=== PATIENT | female | born 1925 | race Caucasian/White ===

== ENCOUNTER → 2016-08-11 | Outpatient (CLI) | payer MEDICARE, BC ==
--- NOTE | 2016-08-11 12:07 | XR ---
EXAMINATION TYPE: XR lumbosacral spine min 4V DATE OF EXAM: 08/11/2016 12:01 PM CLINICAL HISTORY: pain COMPARISON: NONE TECHNIQUE: Frontal, lateral, and oblique images of the lumbar spine are obtained. FINDINGS: There is mild curvature convex to the left. There is severe degenerative disc space narrowi ng at virtually all levels. 8.8 mm anterolisthesis L4 and L5 related to severe facet joint arthropath y. Grade 1 retrolisthesis of T12 on L1 of 3.5 mm. No compression fracture seen. No bony destructive p rocess identified. IMPRESSION: Degenerative changes as discussed.
== END | disposition home or self-care (01) ==
LOC: RADXRMAIN 11:39
PROVIDERS: ATTEND Internal Medicine
DX: M51.36 Other intervertebral disc degeneration, lumbar region (principal)
CPT/HCPCS: 72110

== ENCOUNTER 2016-11-18 13:06 | Emergency (ER) | payer MEDICARE, BC ==
[2016-11-18] MEDS ORDERED: SODIUM CHLORIDE 0.9% 1,000 ML IV STA (13:34)
[2016-11-18] MEDS ORDERED: IPRATROPIUM-ALBUTEROL 3 ML NEB INHALATION STA (13:34)
[2016-11-18] MEDS ORDERED: NITROGLYCERIN SL TABS 0.4 MG TAB SUBLINGUAL STA (13:35)
[2016-11-18 14:32] LABS: Anisocytosis Slight; Basophils % (A) 1 %; CH 26.9; CHCM 33.1; Eosinophils # (A) 0.1 k/uL (0-0.7); Eosinophils % (A) 1 %; HCT 32.8 % (34.0-46.0); HDW 2.74; HGB 10.3 gm/dL (11.4-16.0); Luc # (Auto) 0.06; Luc % (Auto) 1; Lymphocytes # (A) 1.3 k/uL (1.0-4.8); Lymphocytes % (A) 26 %; MCH 25.7 pg (25.0-35.0); MCHC 31.4 g/dL (31.0-37.0); MCV 81.8 fL (80.0-100.0); Mean Platelet Volume 7.7; Monocytes # (A) 0.3 k/uL (0-1.0); Monocytes % (A) 5 %; Neutrophils # (A) 3.3 k/uL (1.3-7.7); Neutrophils % (A) 66 %; RBC 4.01 m/uL (3.80-5.40); RDW 16.5 % (11.5-15.5); WBC (Perox) 5.04
--- NOTE | 2016-11-18 14:32 | XR ---
EXAMINATION TYPE: XR chest 2V DATE OF EXAM: 11/18/2016 COMPARISON: 12/08/2014 HISTORY: Shortness of breath TECHNIQUE: Frontal and lateral views of the chest are obtained. FINDINGS: Scattered senescent parenchymal changes noted. Hyperinflation compatible with COPD. Basilar parenchymal scarring is unchanged. There are nodular densities identified within the left upp er lobe as well as the left mid lung zone. Consider nonemergent CT for further evaluation. Heart size is enlarged without evidence for CHF. Mediastinal structures are stable and grossly unrema rkable. No evidence for hilar prominence. Degenerative changes dorsal spine. IMPRESSION: 1. No evidence for acute pulmonary disease. 2. Areas of suspected nodularity. Nonemergent CT is recommended.
[2016-11-18 14:43] LABS: Creatine Kinase 72 U/L (30-135)
[2016-11-18 14:45] LABS: Calcium 9.4 mg/dL (8.4-10.2); Magnesium 1.9 mg/dL (1.6-2.3); Potassium 4.2 mmol/L (3.5-5.1); Total Bilirubin 0.5 mg/dL (0.2-1.3); Total Protein 7.4 g/dL (6.3-8.2)
--- NOTE | 2016-11-18 14:51 | ED ---
SOB HPI - General Chief Complaint: Shortness of Breath Stated Complaint: L arm pain Time Seen by Provider: 11/18/16 13:19 Source: patient, RN notes reviewed Mode of arrival: wheelchair Limitations: no limitations - History of Present Illness Initial Comments: This 89-year-old female who presents with complaints of shortness of breath and left arm pain for last couple days. She denies any fevers chills cough or other symptoms she is hard of hearing. MD Complaint: shortness of breath - Related Data Home Medications Medication Instructions Recorded Confirmed Amiodarone [Cordarone] 200 mg PO DAILY 09/21/13 11/18/16 Ipratropium/Albuterol Sulfate 1 dose INHALATION RT-QID 09/21/13 11/18/16 [Duoneb 0.5 mg-3 mg/3 ml Soln] Lovastatin [Mevacor] 10 mg PO HS 09/21/13 11/18/16 Sodium Chloride 5% Ophth Soln 1 drop BOTH EYES 5XD 09/21/13 11/18/16 [Wendy 128] Travoprost (Benzalkonium) 1 drop BOTH EYES HS 09/21/13 11/18/16 [Travoprost 0.004% Eye Drop] Pantoprazole Sodium [Protonix] 40 mg PO DAILY 10/22/13 11/18/16 Apixaban [Eliquis] 2.5 mg PO BID 11/11/14 11/18/16 Ergocalciferol [Vitamin D2] 50,000 unit PO SA 11/11/14 11/18/16 Furosemide [Lasix] 20 mg PO BID 11/11/14 11/18/16 HYDROcodone/APAP 5-325MG [[place] 5] 1 tab PO Q8HR PRN 11/11/14 11/18/16 Losartan Potassium [Cozaar] 50 mg PO HS 11/11/14 11/18/16 Budesonide-Formot 160-4.5 Mcg 2 puff INHALATION RT-BID 11/18/16 11/18/16 [Symbicort 160-4.5 Mcg Inhaler] amLODIPine [Norvasc] 5 mg PO DAILY 11/18/16 11/18/16 Allergies Allergy/AdvReac Type Severity Reaction Status Date / Time meperidine HCl [From Demerol] AdvReac Unknown Verified 11/18/16 13:32 Review of Systems ROS Statement: Those systems with pertinent positive or pertinent negative responses have been documented in the HPI. ROS Other: All systems not noted in ROS Statement are negative. Past Medical History Past Medical History: Atrial Fibrillation, COPD, CVA/TIA, Diabetes Mellitus, GI Bleed, Hyperlipidemia, Hypertension, Pneumonia Additional Past Medical History / Comment(s): bronchitis,emphysema, pulmonary hypertension, cellulitis (abd post choly)? colitis/c-diff , glaucoma History of Any Multi-Drug Resistant Organisms: C-DIFF Date of last positivie culture/infection: 07-23-2013 MDRO Source:: stool Past Surgical History: Appendectomy, Section, Cholecystectomy, Heart Catheterization, Hysterectomy, Tonsillectomy Additional Past Surgical History / Comment(s): finger on lt hand removed, rt carotid endarterectomy, jessica cataracts Past Anesthesia/Blood Transfusion Reactions: No Reported Reaction Past Psychological History: No Psychological Hx Reported Smoking Status: Former smoker Past Alcohol Use History: None Reported Past Drug Use History: None Reported - Past Family History Sister(s) Family Medical History: Cancer General Exam - General Exam Comments Initial Comments: This is a well-developed asthenic appearing female she is awake alert oriented 3 Limitations: no limitations General appearance: alert, in no apparent distress Head exam: Present: atraumatic, normocephalic, normal inspection Eye exam: Present: normal appearance, PERRL, EOMI. Absent: scleral icterus, conjunctival injection, periorbital swelling ENT exam: Present: mucous membranes dry Neck exam: Present: normal inspection. Absent: tenderness, meningismus, lymphadenopathy Respiratory exam: Present: wheezes, decreased breath sounds. Absent: respiratory distress, rales, rhonchi, stridor Cardiovascular Exam: Present: regular rate, normal rhythm, normal heart sounds. Absent: systolic murmur, diastolic murmur, rubs, gallop, clicks GI/Abdominal exam: Present: soft, normal bowel sounds. Absent: distended, tenderness, guarding, rebound, rigid Extremities exam: Present: normal inspection, full ROM, normal capillary refill. Absent: tenderness, pedal edema, joint swelling, calf tenderness Back exam: Present: normal inspection Neurological exam: Present: alert, oriented X3, CN II-XII intact Psychiatric exam: Present: normal affect, normal mood Skin exam: Present: warm, dry, intact, normal color. Absent: rash Course Vital Signs 11/18/16 11/18/16 11/18/16 13:09 13:56 14:01 Temperature 98.0 F Pulse Rate 63 56 L 61 Respiratory 18 18 Rate Blood Pressure 174/77 154/68 O2 Sat by Pulse 95 96 Oximetry 11/18/16 11/18/16 11/18/16 14:07 14:15 14:36 Temperature Pulse Rate 64 58 L 56 L Respiratory 18 18 Rate Blood Pressure 104/46 177/58 O2 Sat by Pulse 98 100 Oximetry 11/18/16 15:00 Temperature Pulse Rate 58 L Respiratory 16 Rate Blood Pressure 155/63 O2 Sat by Pulse 99 Oximetry Medical Decision Making - Medical Decision Making I did discuss [employer] the patient she is no longer short of breath or arm does not hurt anymore. The presentation is consistent with bronchospasm and musculoskeletal arm pain - Lab Data Result diagrams: 11/18/16 13:55 11/18/16 13:55 Lab Results 11/18/16 11/18/16 11/18/16 Range/Units 13:55 13:55 13:55 WBC 5.0 (3.8-10.6) k/uL RBC 4.01 (3.80-5.40) m/uL Hgb 10.3 L (11.4-16.0) gm/dL Hct 32.8 L (34.0-46.0) % MCV 81.8 (80.0-100.0) fL MCH 25.7 (25.0-35.0) pg MCHC 31.4 (31.0-37.0) g/dL RDW 16.5 H (11.5-15.5) % Plt Count 228 (150-450) k/uL Neutrophils % 66 % Lymphocytes % 26 % Monocytes % 5 % Eosinophils % 1 % Basophils % 1 % Neutrophils # 3.3 (1.3-7.7) k/uL Lymphocytes # 1.3 (1.0-4.8) k/uL Monocytes # 0.3 (0-1.0) k/uL Eosinophils # 0.1 (0-0.7) k/uL Basophils # 0.0 (0-0.2) k/uL Anisocytosis Slight PT (9.0-12.0) sec INR (<1.2) APTT (22.0-30.0) sec D-Dimer (<0.60) mg/L FEU Sodium 130 L (137-145) mmol/L Potassium 4.2 (3.5-5.1) mmol/L Chloride 97 L (98-107) mmol/L Carbon Dioxide 24 (22-30) mmol/L Anion Gap 9 mmol/L BUN 20 H (7-17) mg/dL Creatinine 1.33 H (0.52-1.04) mg/dL Est GFR (MDRD) Af Amer 46 (>60 ml/min/1.73 sqM) Est GFR (MDRD) Non-Af 38 (>60 ml/min/1.73 sqM) Glucose 102 H (74-99) mg/dL Calcium 9.4 (8.4-10.2) mg/dL Magnesium 1.9 (1.6-2.3) mg/dL Total Bilirubin 0.5 (0.2-1.3) mg/dL AST 23 (14-36) U/L ALT 30 (9-52) U/L Alkaline Phosphatase 82 (38-126) U/L Total Creatine Kinase 72 (30-135) U/L CK-MB (CK-2) 2.4 (0.0-2.4) ng/mL CK-MB (CK-2) Rel Index 3.3 Troponin I <0.012 (0.000-0.034) ng/mL NT-Pro-B Natriuret Pep pg/mL Total Protein 7.4 (6.3-8.2) g/dL Albumin 4.1 (3.5-5.0) g/dL 11/18/16 11/18/16 Range/Units 13:55 13:55 WBC (3.8-10.6) k/uL RBC (3.80-5.40) m/uL Hgb (11.4-16.0) gm/dL Hct (34.0-46.0) % MCV (80.0-100.0) fL MCH (25.0-35.0) pg MCHC (31.0-37.0) g/dL RDW (11.5-15.5) % Plt Count (150-450) k/uL Neutrophils % % Lymphocytes % % Monocytes % % Eosinophils % % Basophils % % Neutrophils # (1.3-7.7) k/uL Lymphocytes # (1.0-4.8) k/uL Monocytes # (0-1.0) k/uL Eosinophils # (0-0.7) k/uL Basophils # (0-0.2) k/uL Anisocytosis PT 10.5 (9.0-12.0) sec INR 1.0 (<1.2) APTT 23.2 (22.0-30.0) sec D-Dimer 0.31 (<0.60) mg/L FEU Sodium (137-145) mmol/L Potassium (3.5-5.1) mmol/L Chloride (98-107) mmol/L Carbon Dioxide (22-30) mmol/L Anion Gap mmol/L BUN (7-17) mg/dL Creatinine (0.52-1.04) mg/dL Est GFR (MDRD) Af Amer (>60 ml/min/1.73 sqM) Est GFR (MDRD) Non-Af (>60 ml/min/1.73 sqM) Glucose (74-99) mg/dL Calcium (8.4-10.2) mg/dL Magnesium (1.6-2.3) mg/dL Total Bilirubin (0.2-1.3) mg/dL AST (14-36) U/L ALT (9-52) U/L Alkaline Phosphatase (38-126) U/L Total Creatine Kinase (30-135) U/L CK-MB (CK-2) (0.0-2.4) ng/mL CK-MB (CK-2) Rel Index Troponin I (0.000-0.034) ng/mL NT-Pro-B Natriuret Pep 884 pg/mL Total Protein (6.3-8.2) g/dL Albumin (3.5-5.0) g/dL - EKG Data -: EKG Interpreted by Sc EKG shows normal: sinus rhythm (Sinus rhythm rate 64. Interval 92 QRS 100 QT since QTC of 440/[address]-T wave configuration) - Radiology Data Radiology results: report reviewed (Imaging shows no definite acute findings or some question of nodularity. The patient's arm pain is resolved she did have pain is reproducible with flexion of her left elbow. No deficits. Patient be discharged to follow-up with her doctor.), image reviewed Disposition Clinical Impression: Musculoskeletal pain of left upper extremity, Bronchospasm Disposition: HOME SELF-CARE Condition: Good Instructions: Bronchospasm (ED), Arm Pain (ED) Referrals: Alfred Garcia MD [Primary Care Provider] - 1-2 days
[2016-11-18 14:55] LABS: Creatine Kinase MB 2.4 ng/mL (0.0-2.4); Troponin I <0.012 ng/mL (0.000-0.034)
[2016-11-18 15:04] LABS: Partial Thromboplastin Time 23.2 sec (22.0-30.0); Prothrombin Time 10.5 sec (9.0-12.0)
[2016-11-18 16:25] VITALS: BP 120/70; PULSE 60; RESP 18; TEMP 97.5
== END 2016-11-18 16:35 | disposition home or self-care (01) ==
LOC: EC 13:06
DX: J98.01 Acute bronchospasm (principal); M79.602 Pain in left arm; I48.91 Unspecified atrial fibrillation; I10 Essential (primary) hypertension; J43.9 Emphysema, unspecified; E78.5 Hyperlipidemia, unspecified; Z87.891 Personal history of nicotine dependence; Z79.01 Long term (current) use of anticoagulants; Z79.51 Long term (current) use of inhaled steroids; Z79.899 Other long term (current) drug therapy
CPT/HCPCS: 36415; 71020; 80053; 82550; 82553; 83735; 83880; 84484; 85025; 85379; 85610; 85730; 93005; 94640; 96360; 96361; 99285

== ENCOUNTER → 2017-01-16 | Outpatient (CLI) | payer MEDICARE, BC ==
--- NOTE | 2017-01-16 16:45 | CT ---
EXAMINATION TYPE: CT chest wo con DATE OF EXAM: 01/16/2017 COMPARISON: NONE HISTORY: 89-year-old female Lung nodules. TECHNIQUE: Contiguous axial scanning of the chest without IV contrast. Coronal and sagittal reconstru ctions performed. CT DLP: 280.80 mGycm Automated exposure control for dose reduction was used. FINDINGS: 1 cm hypodense nodule inferior right lobe of the thyroid gland. The heart is mildly enlarged without pericardial effusion. Coronary vessel calcifications are present and are remarkable for coronary artery disease. Ascending aorta is ectatic at 3.5 cm. Mild atherosclerotic arch calcifications. Conventional vessel b ranching anatomy with tortuous great vessels. Scattered nonenlarged mediastinal lymph nodes are present measuring up to 6 mm. No thoracic lymphaden opathy by CT size criteria. There is a contrast column within the esophagus extending up to the upper third thoracic level. Chronic appearing subpleural interstitial densities and subpleural groundglass particularly in the mi d to lower lungs. Subpleural microcystic changes present at the lung bases with traction bronchiectas is. There is focal annular narrowing and soft tissue thickening at the distal esophagus approximately 3 t o 4 cm above the GE junction, reference axial image 38 and sagittal images 54 and 55. The abdomen were reported separately. Bones: Degenerative disc disease throughout the thoracic spine with grade 1 retrolisthesis at T12-L1. Fatty matrix hemangioma within T6 vertebral body. Grade 1 anterolisthesis at T3-T4. No osseous destr uctive process seen. Degenerative changes at the right shoulder. IMPRESSION: 1. NO SUSPICIOUS PULMONARY NODULE IDENTIFIED. 2. HOWEVER, THERE ARE FINDINGS WITHIN THE LUNGS CHARACTERIZED BY SUBPLEURAL INTERSTITIAL FIBROSIS, GR OUNDGLASS, MICROCYSTIC CHANGE, AND BIBASILAR TRACTION BRONCHIECTASIS WITH A LOWER LUNG PREDOMINANCE. CONSIDER FIBROTIC NSIP OR EARLY UIP. 2. CONTRAST COLUMN EXTENDING UP TO THE UPPER THIRD ESOPHAGEAL LEVEL. CORRELATE FOR GASTROESOPHAGEAL R EFLUX DISEASE. 3. ANNULAR NARROWING AND SOFT TISSUE THICKENING OF THE DISTAL ESOPHAGUS LOCATED 3 TO 4 CM ABOVE THE G E JUNCTION. RECOMMEND DIRECT VISUALIZATION TO EXCLUDE ESOPHAGEAL CANCER. 4. ABDOMEN WILL BE REPORTED SEPARATELY.
--- NOTE | 2017-01-16 17:31 | CT ---
EXAMINATION TYPE: CT abdomen pelvis w con DATE OF EXAM: 01/16/2017 COMPARISON: 03/12/2020 HISTORY: 89-year-old female with Constipation. TECHNIQUE: Contiguous axial scanning of the abdomen and pelvis following administration of 100 ml Omn ipaque 300 IV contrast. Delayed images through the kidneys and coronal/sagittal reconstructions perf ormed. CT DLP: 551.80 mGycm Automated exposure control for dose reduction was used. FINDINGS: The chest is reported separately including findings along the distal esophagus. The central left hepatic lobe cyst now measures 1.3 cm enlarged from 2009. No focal liver lesion. Por kay venous system appears patent. No biliary ductal dilatation. Cholecystectomy clips are present. Adrenal glands, left kidney, spleen, pancreas appear within normal limits. Small anterior splenule. Moderate atherosclerotic calcifications throughout the abdominal aorta and iliac arteries without isc hemic changes extending into both celiac axis and SMA with mild to moderate segmental areas of stenos is in the proximal aspect of these vessels. The right kidney remains atrophic with some vascular calcifications. No dilated small bowel, free fluid, or free air. No mesenteric or retroperitoneal lymphadenopathy. Oral contrast has progressed to the distal third transverse colon. There is moderate stool burden sca ttered mild sigmoid diverticulosis. Some pericolonic cysts fat stranding along the descending colon s uspected to represent prominent pericolonic vessels rather than inflammation. Bladder is urine distended. Uterus and ovaries are visualized. A calcification in the right ovary ciro sures 1.1 cm and is slightly larger from 03/12/2010. This is nonspecific and a benign etiology is favo red. Surgical changes along the anterior midline infraumbilical abdominal wall. Small fatty umbilical her iveth. No abnormal fluid collection in the pelvis or pelvic lymphadenopathy seen. Bones: Mild degenerative changes at the hips. Hypertrophic facet arthropathy throughout with grade 2 anterolisthesis at L4-L5 and grade 1 retrolisthesis at T12-L1. There is spinal canal stenosis at L4-L 5. No osseous destructive process seen. IMPRESSION: 1. CHEST AND DISTAL ESOPHAGEAL FINDINGS ARE DISCUSSED IN SEPARATE REPORT OF THE SAME DAY. 2. MODERATE STOOL BURDEN. THERE IS OCCASIONAL SIGMOID DIVERTICULOSIS. SOME PERICOLONIC FAT STRANDING ALONG THE DESCENDING COLON SUSPECTED TO REPRESENT PROMINENT VESSELS RATHER THAN MILD INFLAMMATION. CL INICALLY CORRELATE. 3. ADVANCED MULTILEVEL DEGENERATIVE CHANGES IN THE LUMBAR SPINE WITH GRADE 2 ANTEROLISTHESIS AT L4-L5 AND SPINAL CANAL STENOSIS.
== END | disposition home or self-care (01) ==
LOC: RADCTMAIN 15:07
PROVIDERS: ATTEND Internal Medicine Critical Care Medicine
DX: J47.9 Bronchiectasis, uncomplicated (principal); J84.10 Pulmonary fibrosis, unspecified; R91.8 Other nonspecific abnormal finding of lung field; K57.30 Diverticulosis of large intestine without perforation or abscess without bleeding; E65 Localized adiposity
CPT/HCPCS: 82565; 84520; 71250; 74177; 36415; Q9967